=== PATIENT | female | born 2005 | race Caucasian/White ===

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

== ENCOUNTER 2025-04-29 08:24 | Emergency (ER) | payer MEDICAID ==
[~2025-04-29] VITALS: Ht 160 cm; Wt 53.5 kg
[2025-04-29] MEDS ORDERED: Metoclopramide Hydrochloride 10 MG/2 ML VIAL IV ONE (08:55)
[2025-04-29] MEDS ORDERED: diphenhydrAMINE hydrochloride 50 MG/ML VIAL IV ONE (08:55)
[2025-04-29] MEDS ORDERED: SODIUM CHLORIDE 0.9% 1,000 ML IV ONE (08:55)
[2025-04-29 09:11] LABS: BASO # 0.0 10*3/uL (0.0-0.1); BASO % 0.2 % (0.0-1.0); EOS # 0.1 10*3/uL (0.0-0.4); EOS % 0.7 % (1.0-4.0); MEAN CELL VOLUME 88.9 fl (81.0-99.0); MEAN CORPUSCULAR HGB 29.2 pg (27.0-31.0); MEAN PLATELET VOLUME 10.4 fl (9.6-12.3); MONO # 0.8 10*3/uL (0.1-1.0); MONO % 8.5 % (3.0-9.0); NEUT # 7.0 10*3/uL (2.3-7.9); NEUT % 72.9 % (47.0-73.0); NUCLEATED RED BLOOD CELL 0.0 % (0.0-0.0); NUCLEATED RED BLOOD CELL 0.0 10*3/uL (0.0-0.0); PLATELET COUNT AUTOMATED 177 10*3/uL (130-400); RED CELL DISTRI WIDTH 12.7 % (0-14.5)
[2025-04-29 09:36] LABS: BILIRUBIN Negative (Negative); BLOOD Negative (Negative); CLARITY Clear (Clear); COLOR Yellow (Yellow); KETONE Negative (Negative); LEUKO ESTERASE Trace (Negative); NITRITE Negative (Negative); PH 6.5 (4.5-8.0); SPECIFIC GRAVITY 1.020 (1.001-1.030); UROBILINOGEN 1.0 E.U./dl (0.0-1.0)
[2025-04-29 09:39] LABS: BUN 6 mg/dl (9-23)
[2025-04-29 09:40] LABS: SGPT/ALT < 7 U/L (5-49)
[2025-04-29] MEDS ORDERED: REGLAN10 M1 PO (10:01)
[2025-04-29 10:05] LABS: BACTERIA 1+; EPITHELIAL CELLS 21-30; MUCOUS 1+
== END 2025-04-29 10:14 | disposition home or self-care (01) ==
LOC: ED 08:24
PROVIDERS: Emergency Medicine
DX: O21.8 Other vomiting complicating pregnancy (principal); O26.891 Other specified pregnancy related conditions, first trimester; R21 Rash and other nonspecific skin eruption; Z88.6 Allergy status to analgesic agent; Z91.018 Allergy to other foods; Z79.899 Other long term (current) drug therapy; Z3A.15 15 weeks gestation of pregnancy

== ENCOUNTER 2025-07-19 14:12 | Emergency (ER) | payer OTHER ==
[~2025-07-19] VITALS: Ht 162.5 cm; Wt 59.0 kg
[~2025-07-19 14:12] MED LIST changes: +REGLAN10 M1 PO
[2025-07-19] MEDS ORDERED: SODIUM CHLORIDE 0.9% 1,000 ML IV ONE (14:50)
[2025-07-19 14:58] LABS: BASO # 0.0 10*3/uL (0.0-0.1); BASO % 0.2 % (0.0-1.0); EOS # 0.0 10*3/uL (0.0-0.4); EOS % 0.1 % (1.0-4.0); MEAN CELL VOLUME 90.0 fl (81.0-99.0); MEAN CORPUSCULAR HGB 29.9 pg (27.0-31.0); MEAN PLATELET VOLUME 10.6 fl (9.6-12.3); MONO # 0.9 10*3/uL (0.1-1.0); MONO % 5.1 % (3.0-9.0); NEUT # 16.0 10*3/uL (2.3-7.9); NEUT % 89.9 % (47.0-73.0); NUCLEATED RED BLOOD CELL 0.0 % (0.0-0.0); NUCLEATED RED BLOOD CELL 0.0 10*3/uL (0.0-0.0); PLATELET COUNT AUTOMATED 184 10*3/uL (130-400); RED CELL DISTRI WIDTH 12.7 % (0-14.5)
[2025-07-19 15:21] LABS: BUN 7 mg/dl (9-23)
[2025-07-19 15:49] LABS: BILIRUBIN Negative (Negative); BLOOD Negative (Negative); CLARITY Cloudy (Clear); COLOR Yellow (Yellow); KETONE 4+ (Negative); LEUKO ESTERASE 1+ (Negative); NITRITE Negative (Negative); PH 6.5 (4.5-8.0); SPECIFIC GRAVITY >= 1.030 (1.001-1.030); UROBILINOGEN 1.0 E.U./dl (0.0-1.0)
[2025-07-19 16:04] LABS: RBC 0-2 rbc/hpf (0-2)
[2025-07-19 16:05] LABS: BACTERIA 1+; EPITHELIAL CELLS 21-30
[2025-07-19] MEDS ORDERED: REGLAN10 M1 PO (16:12)
[2025-07-19] MEDS ORDERED: AMOX-CLAV 875-1 EACH PO (16:12)
[2025-07-19] MEDS ORDERED: Amoxicillin/Clavulanate Pota 875 MG TAB PO ONE (16:15)
== END 2025-07-19 16:20 | disposition home or self-care (01) ==
LOC: ED 14:12
PROVIDERS: Internal Medicine
DX: O26.892 Other specified pregnancy related conditions, second trimester (principal); R82.71 Bacteriuria; Z88.8 Allergy status to other drugs, medicaments and biological substances; Z91.018 Allergy to other foods; Z3A.27 27 weeks gestation of pregnancy